=== PATIENT | female | born 1970 | race Caucasian/White ===

== ENCOUNTER → 2021-03-29 11:52 | Outpatient (CLI) | payer BC, OTHER, SELFPAY ==
--- NOTE | 2021-03-29 11:57 | DI.RAD.S_ITS ---
PROCEDURE: XR CHEST 2V INDICATIONS: cough, h/o covid, r/o Secondary infection TECHNIQUE: 2 views of the chest were acquired. COMPARISON: None. FINDINGS: Surgical changes and devices: None. Lungs and pleura: There are few patchy indistinct opacities in the right lung base. No pleural effusions or pneumothorax. Mediastinum: Mediastinal contours are normal. Heart size is normal. Bones and chest wall: No suspicious bony abnormalities. Soft tissues appear unremarkable. IMPRESSION: 1. Patchy indistinct opacities in the right lung base suspicious for pneumonia. Dictated by: Sharath Pope M.D. on 03/29/2021 at 12:40 Approved by: Sharath Pope M.D. on 03/29/2021 at 12:48
== END ==
PROVIDERS: Referring Provider Nurse Practitioner; Visit Provider Nurse Practitioner
DX: R05.9 Cough, unspecified (principal); Z86.16 Personal history of COVID-19
CPT/HCPCS: 71046